=== PATIENT | female | born 1935 | race Caucasian/White ===

== ENCOUNTER 2019-10-16 14:29 | Emergency (ER) | payer MEDICARE ==
[~2019-10-16] VITALS: Ht 157.5 cm; Wt 50.0 kg
--- NOTE | 2019-10-16 17:34 | NUR ---
SEPHORA OPERATIONS CONSULTANT: PT TO ROOM FROM LOBBY VIA WHEELCHAIR AT THIS TIME. PT WITH FAMILY MEMBER.
--- NOTE | 2019-10-16 17:52 | NUR ---
PT PRESENTS TO ED WITH SWELLING TO LEFT PERIORBITAL EYE AREA AND LEFT WRIST. GLF TODAY IN LAUNDRY ROOM. DENIES LOC. DENIES ANTICOAGULANT MEDS.
[2019-10-16] MEDS ORDERED: HYDROcodone/APAP 5/325 TABLET ONE (18:49)
[2019-10-16] MEDS ORDERED: HYDROcodone/APAP 5/325 TABLET PO ONE (19:00)
[2019-10-16 19:15] VITALS: BP 160/71
--- NOTE | 2019-10-16 19:15 | NUR ---
L WRIST SPLINTED BY COAGULATING BATH OPERATOR, CMS+, CAST CARE AND F/U INST TO THE PT. VERB UNDERSTANDING.
== END 2019-10-16 19:18 | disposition home or self-care (01) ==
LOC: ED 19:10
DX: S06.0X0A Concussion without loss of consciousness, initial encounter (principal); S52.502A Unspecified fracture of the lower end of left radius, initial encounter for closed fracture; Z90.89 Acquired absence of other organs; Z90.49 Acquired absence of other specified parts of digestive tract; Z90.710 Acquired absence of both cervix and uterus; I10 Essential (primary) hypertension; W01.0XXA Fall on same level from slipping, tripping and stumbling without subsequent striking against object, initial encounter; Y93.89 Activity, other specified; Y92.009 Unspecified place in unspecified non-institutional (private) residence as the place of occurrence of the external cause; Y99.8 Other external cause status
CPT/HCPCS: 29125; 29515; 70450; 70486; 72125; 99284